=== PATIENT | male | born 1960 | race Caucasian/White ===

== ENCOUNTER 2021-06-20 13:29 | Outpatient (CLI) | payer BC ==
--- NOTE | 2021-06-20 19:59 | XRAY Report ---
PROCEDURE: Knee 3 View LT INDICATIONS: LEFT KNEE PAIN, ANTERIOR TRAUMA 3 WEEKS AGO TECHNIQUE: 3 views of the left knee(s) were acquired. COMPARISON: None. FINDINGS: Bones: No fractures or dislocations. Mild joint space narrowing at the medial compartment. Small me dial compartment and patellar compartment osteophytes. No periosteal reaction. No suspicious bony les ions. Soft tissues: No significant joint effusion. No suspicious soft tissue calcifications. IMPRESSION: No fracture demonstrated. Mild left knee DJD. Reviewed by: Bhupinder Loya MD on 06/20/2021 7:58 PM PST Approved by: Bhupinder Loya MD on 06/20/2021 7:58 PM PST Station ID: [id number]
== END 2021-06-20 23:59 | disposition home or self-care (01) ==
LOC: DI.N 13:29
PROVIDERS: ATTEND Physician Assistant
DX: M25.562 Pain in left knee (principal); M17.12 Unilateral primary osteoarthritis, left knee